=== PATIENT | male | born 1985 | race Caucasian/White ===

== ENCOUNTER 2021-11-12 12:36 | Observation (INO) | payer BC, SELFPAY ==
--- NOTE | ~2021-11-12 | US_ITS ---
US venous doppler [facility] DATE: 11/12/2021 14:14 INDICATION: Left flank pain and swelling. Left hip surgery 5 days ago. TECHNIQUE: Real-time and color flow imaging and Doppler analysis of the veins of the left lower extre mity COMPARISON: None FINDINGS: The left greater saphenous vein is patent. There is spontaneous and phasic flow and normal augmentation and color flow signal and normal compression of the deep veins of the left lower extremi ty. IMPRESSION: Negative examination; no evidence of deep venous thrombosis of left lower extremity Reviewed, dictated and finalized at [facility]. Reviewed, dictated and finalized at [facility].
--- NOTE | ~2021-11-12 | CT_ITS ---
CT guided aspiration DATE: 11/12/2021 16:54 INDICATION: CT-guided percutaneous aspiration of reported left hip area fluid collection TECHNIQUE: The purpose of the procedure, technique and potential complications were discussed discuss ed with the patient. Patient verbalized understanding and gave consent. Biliary CT scanning was performed, revealing fluid collection within the superficial subcutaneous gabi pose tissue over the anterolateral aspect of the left hip.. The area was localized with the use of a graded placed over the left hip. The skin was repaired with sterile Betadine solution. Sterile drape was applied. 1% lidocaine local anesthetic was administered to the skin and underlying subcutaneous t issues. An 18-gauge needle was introduced into the fluid collection using CT guidance. Approximately 2.5 cc serosanguineous fluid was obtained. Dr. Meraz was present and assisted with handling of the fluid specimen for laboratory culture and se nsitivity testing IMPRESSION: CT-guided percutaneous aspiration of approximately 2.5 CC serosanguineous fluid from the superficial subcutaneous adipose tissues of the anterolateral left hip. Reviewed, dictated and finalized at [facility]. Reviewed, dictated and finalized at [facility]. IMPRESSION: CT-guided percutaneous aspiration of approximately 2.5 CC serosangu ineous fluid from the superficial subcutaneous adipose tissues of the anterolat eral left hip.
--- NOTE | ~2021-11-12 | XR_ITS ---
XR hip LT 2V w AP pelvis DATE: 11/12/2021 13:18 INDICATION: Postoperative pain of left hip TECHNIQUE: AP pelvis. AP and lateral views of left hip. COMPARISON: None FINDINGS: Normal alignment at the pubic symphysis and sacroiliac joints. No pelvic fracture or bone d estruction. Status post left total hip arthroplasty. No fracture or dislocation or bone destruction of the left h ip. There is nonspecific patchy increased density overlying the right femoral head similar avascular necr osis is not excluded. IMPRESSION: Status post left total hip arthroplasty No pelvic or left hip fracture or dislocation Reviewed, dictated and finalized at [facility].
--- NOTE | ~2021-11-12 | XR_ITS ---
XR fl guided needle placement DATE: 11/12/2021 16:44 INDICATION: Left hip pain, tenderness 5 days post operative from left total hip arthroplasty TECHNIQUE: The purpose of the procedure, technique and potential complications were discussed with th e patient. The patient verbalized understanding and gave consent. The skin over the anterolateral aspect of the proximal thigh was prepared with sterile Betadine. Ster ile drape was applied. 1% lidocaine local anesthetic was administered to the skin and underlying subc utaneous tissues. A 20-gauge spinal needle was introduced into the left hip joint at 2 different areas, each yielding n o fluid. IMPRESSION: No intra-articular left hip fluid was detected upon fluoroscopically guided left hip aspi ration Reviewed, dictated and finalized at [facility]. Reviewed, dictated and finalized at [facility]. IMPRESSION: No intra-articular left hip fluid was detected upon fluoroscopicall y guided left hip aspiration
[2021-11-12 12:30] VITALS: BP 118/60; PULSE 117; RESP 16; TEMP 37.7; O2SAT 98
--- NOTE | 2021-11-12 13:02 | ED.EXTPRO ---
HPI - Extremity Problem General Chief complaint: Extremity Problem,Nontraumatic Stated complaint: hip pain History of Present Illness HPI Narrative: Patient is a 36-year-old male who presents ER with concerns for possible left hip infection. Patient is status post left hip arthroplasty 5 days ago. Performed by Dr. De Santiago at [facility]. Patient has had increased pain since the procedure. Patient went to [facility] today and after consultation with his orthopedic surgeon it was recommended he be transferred to the ER for further evaluation and possible washout of the hip. Patient was found to have elevated temperature with elevated ESR/CRP. He was given vancomycin as well as cefepime while in the ER at outside hospital. They were attempting to treat his pain with morphine. Patient reports he is able to bear weight on his leg but it is extremely painful. No new numbness or tingling. No redness or drainage from the operative area. He is exquisitely tender to light touch from the hip down to the knee. Will not allow range of motion to be performed due to this discomfort. Patient reports he has been having subjective fevers and shaking chills in addition to his pain at home. Patient has history of avascular necrosis of the hips and has had them replaced. Related Data Home Medications Medication Instructions Recorded Confirmed apixaban 2.5 mg tablet (Eliquis) 2.5 mg PO DAILY 11/12/21 11/12/21 atorvastatin 40 mg tablet (Lipitor) 40 mg PO DAILY 11/12/21 11/12/21 celecoxib 200 mg capsule (Celebrex) 200 mg PO DAILY 11/12/21 11/12/21 cephalexin 500 mg capsule 500 mg PO BID 11/12/21 11/12/21 hydrocodone 7.5 mg-acetaminophen 1 tablet PO Q3H PRN Pain 11/12/21 11/12/21 325 mg tablet Allergies Allergy/AdvReac Type Severity Reaction Status Date / Time No Known Allergies Allergy Verified 11/12/21 13:02 Review of Systems Review of Systems: All systems reviewed & are unremarkable except as noted in HPI and below Constitutional: Constitutional: Reports chills, Reports fatigue and Reports fever(s) ENT: Denies nasal congestion and Denies sore throat Cardiovascular: Cardiovascular: Denies chest pain, Denies rapid heart rate and Denies radiating jaw, neck or arm pain Respiratory: Respiratory: Denies cough and Denies dyspnea Gastrointestinal: Gastrointestinal: Denies abdominal pain, Denies nausea and Denies vomiting Musculoskeletal: Musculoskeletal: Reports arthralgias, Reports joint swelling and Denies muscle cramps Neurologic: Denies numbness and Denies weakness PMFSH Past Medical History Medical History (Updated 11/12/21 @ 20:07 by Taco Quinn MD) Avascular necrosis of hip Surgical History Surgical History History of hip replacement Family History Family History (Updated 11/12/21 @ 19:31 by Miya Laws RN) Other Unknown family medical history Social History Social History (Updated 11/12/21 @ 17:37 by Eli Hillman PA-C) Social History: Surrogate medical decision maker: Code status: Full code. Smoking status: Former smoker Alcohol intake: current Drinks per week: 1 Substance use: never Spiritual care concerns: No Exam Narrative: GENERAL: Uncomfortable and frustrated-appearing, well-nourished, and in no acute distress. HEAD: Normocephalic, atraumatic. EYES: PERRL and EOMI. ENT: Mucous membranes moist. CHEST: Clear to auscultation. No respiratory distress. HEART: Regular rate and rhythm. Normal peripheral pulses. ABDOMEN: Soft, nontender, nondistended. EXTREMITIES: Patient extremely tender palpation of the left hip and thigh down to the knee. No redness. Negligible swelling compared to the right side. Incision appears normal and well-healing without drainage or cellulitis. SKIN: Warm, dry, no rash. NEURO: Alert and oriented x3. PSYCH: Normal mood and affect. Course Course Emergency Course: [place]
[2021-11-12] MEDS: HYDROmorphone HCL INJ (*CRX) 1 MG/ML SYR IV PUSH ×3 (13:03→17:27)
[2021-11-12 13:39] LABS: Basophils Absolute Auto 0.1 K/mm3 (0.0-0.1); Basophils Percent Auto 0.6 % (0.2-1.2); Eosinophils Absolute Auto 0.1 K/mm3 (0-0.3); Eosinophils Percent Auto 1.3 % (0-4.4); Hematocrit 36.4 % (42.0-52.0); Hemoglobin 11.9 g/dL (14.0-18.0); Lymphocytes Absolute Auto 2.04 K/mm3 (0.9-3.2); Lymphocytes Percent Auto 20.5 % (18.3-44.2); Mean Corpuscular HGB Conc 32.7 g/dl (32-36); Mean Corpuscular Hemoglobin 33.8 pg (26-34); Mean Corpuscular Volume 103.4 fl (80-100); Mean Platelet Volume 10.1 fl (7.4-10.4); Neutrophils Absolute Auto 6.5 K/mm3 (1.3-6.7); Neutrophils Percent Auto 65.6 % (45.5-73.1); Platelet Count Result 235 k/mm3 (150-375); Red Blood Count 3.52 M/mm3 (4.6-6.20)
--- NOTE | 2021-11-12 13:58 | PC.NURSE ---
Patient to ultrasound at this time.
[2021-11-12 15:12] LABS: Alanine Aminotransferase 23 U/L (6-50); Albumin Level 3.9 g/dL (3.5-5.1); Alkaline Phosphatase 72 U/L (38-126); Anion Gap 8 mmol/L (8-16); Aspartate Amino Transferase 27 U/L (17-59); Bilirubin,Total 0.6 mg/dL (0.2-1.3); Blood Urea Nitrogen 11 mg/dL (9-20); Calcium 9.2 mg/dL (8.4-10.2); Carbon Dioxide 22 mmol/L (22-30); Chloride 102 mmol/L (98-107); Estimated CRCL calculation 164 ml/min; Estimated Glomerular Filt Rate > 60; Glucose 97 mg/dL (65-110); Potassium 4.5 mmol/L (3.4-5.0); Sodium 132 mmol/L (137-145)
[2021-11-12 15:16] LABS: Prothrombin Time 12.8 Seconds (11.1-14.7)
[2021-11-12 16:44] LABS: CRP 7.9 mg/dL (<1.0)
[2021-11-12 17:19] LABS: Basophils Absolute Auto 0.1 K/mm3 (0.0-0.1); Basophils Percent Auto 0.8 % (0.2-1.2); Eosinophils Absolute Auto 0.1 K/mm3 (0-0.3); Eosinophils Percent Auto 1.2 % (0-4.4); Hematocrit 36.8 % (42.0-52.0); Immature Granulocyte Absolute 0.19 K/mm3 (0.00-0.031); Lymphocytes Percent Auto 22.6 % (18.3-44.2); Mean Corpuscular HGB Conc 32.6 g/dl (32-36); Mean Corpuscular Hemoglobin 33.3 pg (26-34); Mean Corpuscular Volume 102.2 fl (80-100); Mean Platelet Volume 10.4 fl (7.4-10.4); Monocytes Absolute Auto 0.9 K/mm3 (0.1-0.6); Monocytes Percent Auto 9.4 % (2.6-8.5); Neutrophils Absolute Auto 6.2 K/mm3 (1.3-6.7); Platelet Count Result 251 k/mm3 (150-375); Red Cell Distribution Width 13.9 % (11.5-14.5); White Blood Count 9.7 K/mm3 (4.5-10.0)
--- NOTE | 2021-11-12 17:30 | PM.IMHP ---
H&P: HPI History of Present Illness Date/Time: 11/12/21 17:30 Chief Complaint: Left hip pain. Narrative: This is a 36-year-old male who is postoperative day 5 status post left hip arthroplasty for avascular necrosis who presented to the emergency department at [facility] yesterday for evaluation of increasing left hip pain. CT scan at that time showed a seroma under the incision between the subcutaneous fat and fascia and there was a single small foci of gas at the anterior portion of the wound. There were concerns for possible infection given an elevated CRP and due to lack of necessary services at [facility] on the weekends (IR, ultrasound) he was transferred to [facility] ED to be seen by Dr. Abdelrahman De Santiago who performed his surgery. At the time my evaluation, the patient has just returned from the Interventional Radiology suite. He continues to report a 10/10 pain in the left upper anterior thigh, radiating somewhat into the left groin. He has had minimal relief with Percocet at home and IV dilaudid given earlier. With further questioning he admits that his pain has been poorly controlled since the surgery and he has not been getting up and about much due to the pain. Additionally he has noticed some pretty significant swelling in the upper thigh though that seems to have gone down somewhat. He has not noticed any redness or warmth around the area. He has not had a fever to his knowledge. Review of Systems Review of Systems: Twelve systems were reviewed. No fever, chills, or sweats. Appetite has been okay. No nausea or vomiting. No chest pain or pleuritic pain. No shortness of breath. No history of venous thromboembolism. Except as documented, all other systems were reviewed and are negative. [facility] Past Medical History Medical History (Updated 11/12/21 @ 20:56 by Eli Hillman PA-C) Avascular necrosis of hip Diverticulitis Gastroesophageal reflux disease Hyperlipidemia Surgical History Surgical History (Updated 11/12/21 @ 20:56 by Eli Hillman PA-C) History of right hip replacement Family History Family History Other Unknown family medical history Social History Social History (Updated 11/12/21 @ 20:57 by Eli Hillman PA-C) Social History: Surrogate medical decision maker: Lily Goodman, mother. Code status: Full code. Full code. Smoking status: Former smoker Alcohol intake: current Drinks per week: 1 Substance use: never Spiritual care concerns: No Meds Home Medications and Allergies Home Medications Medication Instructions Recorded Confirmed Type apixaban 2.5 mg tablet (Eliquis) 2.5 mg PO DAILY 11/12/21 11/12/21 History atorvastatin 40 mg tablet (Lipitor) 40 mg PO DAILY 11/12/21 11/12/21 History celecoxib 200 mg capsule (Celebrex) 200 mg PO DAILY 11/12/21 11/12/21 History cephalexin 500 mg capsule 500 mg PO BID 11/12/21 11/12/21 History hydrocodone 7.5 mg-acetaminophen 1 tablet PO Q3H PRN Pain 11/12/21 11/12/21 History 325 mg tablet Allergies Allergy/AdvReac Type Severity Reaction Status Date / Time No Known Allergies Allergy Verified 11/12/21 13:02 Vital Signs Vital Signs - 24 hr 11/12/21 12:30 Temperature 99.8 F H Pulse Rate 117 H Respiratory Rate 16 Blood Pressure 118/60 Pulse Oximetry 98 Oxygen Delivery Room Air Exam Narrative: General: Well-developed male sitting up in bed. He appears to be in a moderate amount of pain. Weight: 116.3 kg. BMI: 32.9. HEENT: PERRL, EOMI. Conjunctivae anicteric. Tacky mucous membranes. Neck: Supple. Respiratory: Lungs are clear to auscultation bilaterally. Cardiovascular: Tachycardic with normal S1-S2. Gastrointestinal: Abdomen is soft, nontender, and nondistended with positive bowel sounds. Skin: Warm and dry. No rash or lesions on limited exam. Extremities: No cyanosis, clubbing, or edema. Radial and pedal pulses intact.
--- NOTE | 2021-11-12 17:41 | PM.IMHP ---
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 Meds Home Medications and Allergies Home Medications Medication Instructions Recorded Confirmed Type apixaban 2.5 mg tablet (Eliquis) 2.5 mg PO DAILY 11/12/21 11/12/21 History atorvastatin 40 mg tablet (Lipitor) 40 mg PO DAILY 11/12/21 11/12/21 History celecoxib 200 mg capsule (Celebrex) 200 mg PO DAILY 11/12/21 11/12/21 History cephalexin 500 mg capsule 500 mg PO BID 11/12/21 11/12/21 History cholecalciferol (vitamin D3) 1,250 1,250 mcg PO WEEKLY 11/12/21 11/12/21 History mcg (50,000 unit) capsule hydrocodone 7.5 mg-acetaminophen 1 tablet PO Q3H PRN Pain 11/12/21 11/12/21 History 325 mg tablet losartan 25 mg tablet 25 mg PO DAILY 11/12/21 11/12/21 History Allergies Allergy/AdvReac Type Severity Reaction Status Date / Time No Known Allergies Allergy Verified 11/12/21 13:02 Vital Signs Vital Signs - 24 hr 11/12/21 12:30 Temperature 37.7 C H Pulse Rate 117 H Respiratory Rate 16 Blood Pressure 118/60 Pulse Oximetry 98 Oxygen Delivery Room Air H&P: Results Labs Labs: Short CBC 11/12/21 11/12/21 Range/Units 13:30 17:06 WBC 10.0 9.7 (4.5-10.0) K/mm3 Hgb 11.9 L 12.0 L (14.0-18.0) g/dL Hct 36.4 L 36.8 L (42.0-52.0) % Plt Count 235 251 (150-375) k/mm3 BMP 11/12/21 14:30 Sodium 132 L Potassium 4.5 Chloride 102 Carbon Dioxide 22 BUN 11 Creatinine 0.70 Glucose 97 Calcium 9.2 Liver Function 11/12/21 Range/Units 14:30 Total Bilirubin 0.6 (0.2-1.3) mg/dL AST 27 (17-59) U/L ALT 23 (6-50) U/L Alkaline Phosphatase 72 (38-126) U/L Albumin 3.9 (3.5-5.1) g/dL Assessment and Plan Assessment and plan (1) Postoperative pain: Code(s): G89.18 - Other acute postprocedural pain Status: Acute Plan PATIENT IS A 36-YEAR-OLD GENTLEMAN who underwent left total hip arthroplasty 5 days ago at [facility] on 11/07/2021 for 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 He Came to the emergency room in the middle the night last night when his left hip area became swollen. The emergency room physician felt it was likely infected. Because [facility] does not have weekend surfaces for Interventional Radiology to be able to aspirate the hip and they do not have we can surfaces for venous duplex ultrasound and they did not have operating room surfaces this weekend, he was transferred to [facility]. His laboratory studies a [facility] showed a hemoglobin of 7.9, C-reactive protein of 10 normal less than 0.5. Normal white count. This temperature was 99? so that was nonspecific. His wound was noted to be normal in appearance except for the diffuse swelling and mild erythema of the anterolateral hip and thigh where he had the swelling. He was evaluated at the emergency room here at [facility]. Labs repeated and inexplicably, his hemoglobin was 11.9. I repeated the CBC again and at 5:00 p.m. his hemoglobin was 12.0 so it would appear that the 7.9 hemoglobin was an error. His hemoglobin of 12 represents a mild acute blood loss anemia resulting from the surgery. His hemoglobin was normal before the surgery. C-reactive protein here was 7.9, normal being 1 or less so this is less than 10 times normal and in the immediate postoperative period up to 30 days,hip and kne
--- NOTE | 2021-11-12 17:48 | PC.NURSE ---
Patient medications verified with patient's pharmacy. [facility] in [place], [place].
[2021-11-12 17:50] VITALS: PULSE 125; RESP 18; O2SAT 96
[2021-11-12] MEDS: oxyCODONE/ACETAMINOPHEN (*CRX) 5-325 MG TABLET 2 TABLET PO (18:12)
--- NOTE | 2021-11-12 18:43 | PC.NURSE ---
Patient care report to KACIE Walls. All questions answered at this time.
[2021-11-12 18:52] LABS: Erythrocyte Sedimentation Rate 70 mm/hr (0-20)
--- NOTE | 2021-11-12 19:10 | ADMGEN ---
This patient, Robert Minaya, was admitted to Medical Room 251-01. Patient/family oriented to hospital policies and general routines including ID bracelet, bed and alarms, visiting hours, pain management, procedures, bathroom and other care routines, personal items, smoking policy, room service/diet, and visiting hours. Information on how to activate the Rapid Response Team has been discussed. Patient/Family are encouraged to report perceived risks to care and to ask questions if they do not understand what they are told or what they should do.
[2021-11-12 19:30] VITALS: BMI 32.9
[2021-11-12 19:32] VITALS: BP 133/74; PULSE 109; RESP 20; TEMP 37.2; O2SAT 97
[2021-11-12] MEDS: HYDROcodone/acetaminophen (*CRX) 5-325 MG TABLET 1 TAB PO (20:17)
[2021-11-12] MEDS: cefTRIAXone 2 GM in SODIUM CHLORIDE 0.9% IV 100 ML 200 ML IVPB (20:47)
[2021-11-12 21:15] VITALS: BP 105/51; PULSE 97; RESP 16; TEMP 36.6; O2SAT 95
[2021-11-12] MEDS: oxyCODONE HCL (*CRX) 10 MG TAB SR 12HR PO (21:19)
[2021-11-12] MEDS: APIXABAN 2.5 MG TABLET PO (21:19)
[2021-11-12] MEDS: HYDROmorphone HCL INJ (*CRX) 1 MG/ML SYR 0.5 MG IV PUSH (21:28)
[2021-11-13] MEDS: HYDROmorphone HCL INJ (*CRX) 1 MG/ML SYR 0.5 MG IV PUSH ×2 (01:29→05:31)
[2021-11-13 03:46] VITALS: BP 143/65; PULSE 89; RESP 12; TEMP 36.4; O2SAT 94
[2021-11-13 05:45] LABS: Basophils Absolute Auto 0.1 K/mm3 (0.0-0.1); Basophils Percent Auto 0.9 % (0.2-1.2); Eosinophils Absolute Auto 0.2 K/mm3 (0-0.3); Eosinophils Percent Auto 2.6 % (0-4.4); Hematocrit 35.1 % (42.0-52.0); Immature Granulocyte Absolute 0.22 K/mm3 (0.00-0.031); Immature Granulocyte Percent A 3.3 % (0-0.5); Lymphocytes Absolute Auto 2.09 K/mm3 (0.9-3.2); Lymphocytes Percent Auto 31.5 % (18.3-44.2); Mean Corpuscular HGB Conc 31.3 g/dl (32-36); Mean Corpuscular Hemoglobin 33.1 pg (26-34); Mean Corpuscular Volume 105.7 fl (80-100); Mean Platelet Volume 9.9 fl (7.4-10.4); Monocytes Absolute Auto 0.9 K/mm3 (0.1-0.6); Monocytes Percent Auto 13.1 % (2.6-8.5); Neutrophils Absolute Auto 3.2 K/mm3 (1.3-6.7); Neutrophils Percent Auto 48.6 % (45.5-73.1); Platelet Count Result 221 k/mm3 (150-375); Red Blood Count 3.32 M/mm3 (4.6-6.20); Red Cell Distribution Width 13.6 % (11.5-14.5); White Blood Count 6.6 K/mm3 (4.5-10.0)
[2021-11-13 05:56] LABS: Anion Gap 6 mmol/L (8-16); Blood Urea Nitrogen 15 mg/dL (9-20); Calcium 9.1 mg/dL (8.4-10.2); Carbon Dioxide 30 mmol/L (22-30); Chloride 99 mmol/L (98-107); Estimated CRCL calculation 134 ml/min; Estimated Glomerular Filt Rate > 60; Glucose 120 mg/dL (65-110); Magnesium 2.2 mg/dL (1.6-2.3); Potassium 4.4 mmol/L (3.4-5.0); Sodium 135 mmol/L (137-145)
[2021-11-13 06:07] LABS: Iron 46 ug/dL (49-181)
[2021-11-13 06:16] LABS: Percent Iron Saturation 17 % (20-50)
[2021-11-13 07:01] LABS: Folic Acid 5.8 ng/mL (2.76->20)
--- NOTE | 2021-11-13 07:39 | PM.PNORT ---
Progress Note: A&P Additional Plan In explicitly, my complete admission transfer orders are not in effect this morning. I have spoken to pharmacy and will load his vancomycin and started. That is the most important antibiotic for him since he did test positive for MRSA before surgery. I do not want him to be on Eliquis in case his cultures grow something and we need to stop his anticoagulation as Eliquis takes 48 hours to reverse and instead I want to use Lovenox which takes 24 hours to reverse. I have made these corrections. Subjective Subjective Date/Time Seen: 11/13/21 07:39 Objective Data Vital Signs Vital Signs: Vital Signs - 24 hr 11/12/21 12:30 11/12/21 17:50 11/12/21 19:32 Temperature 37.7 C H 37.2 C Pulse Rate 117 H 125 H 109 H Respiratory Rate 16 18 20 Blood Pressure 118/60 133/74 Pulse Oximetry 98 96 97 Oxygen Delivery Room Air 11/12/21 20:00 11/12/21 21:15 11/13/21 03:46 Temperature 36.6 C 36.4 C L Pulse Rate 97 89 Respiratory Rate 16 12 Blood Pressure 105/51 L 143/65 H Pulse Oximetry 95 94 Oxygen Delivery Room Air Intake/Output Intake/Output: Intake & Output 11/10/21 11/11/21 11/12/21 11/13/21 23:59 23:59 23:59 23:59 Intake Total 100 772 Balance 100 772 Meds/Results Medications: Active Medications Generic Name Dose Route Start Last Admin Trade Name Freq PRN Reason Stop Dose Admin Acetaminophen 650 mg 11/12/21 16:44 Acetaminophen 325 Mg Tablet PO Q4H PRN Mild Pain (1-3) or Fever Acetaminophen 1,000 mg 11/13/21 07:35 Acetaminophen 500 Mg Tablet PO Q6H OH Atorvastatin Calcium 40 mg 11/13/21 09:00 Atorvastatin 40 Mg Tablet PO DAILY OH Celecoxib 200 mg 11/13/21 09:00 Celecoxib 200 Mg Capsule PO DAILY OH Enoxaparin Sodium 30 mg 11/13/21 09:00 Enoxaparin 30 Mg/0.3 Ml Syringe SUB-Q Q12HR OH Ceftriaxone Sodium 2 gm/ 100 mls @ 200 mls/hr 11/12/21 18:05 11/12/21 21:17 Sodium Chloride IVPB Infused DAILY@1700 OH Infusion Vancomycin HCl 1,750 mg in 500 mls @ 250 mls/hr 11/13/21 08:00 Vancomycin 1,750 Mg/D5w 500 Ml IVPB Q12H [facility] Morphine Sulfate 2 mg 11/13/21 07:31 Morphine Sulfate (*Crx) 2 Mg/Ml Inj IV PUSH Q1H PRN Pain Rated 7-10 Naloxone HCl 0.1 mg 11/13/21 07:31 Naloxone Hcl 0.4 Mg/Ml Vial IV PUSH Q2M PRN Opiate Reversal Oxycodone HCl 5 mg 11/13/21 07:35 Oxycodone Hcl (*Crx) 5 Mg Tab Ir PO Q4H OH Oxycodone HCl 5 mg 11/13/21 07:31 Oxycodone Hcl (*Crx) 5 Mg Tab Ir PO Q4H PRN Pain Rated 4-10 Polyethylene Glycol 17 gm 11/13/21 09:00 Polyethylene Glycol 3350 17 Gm Powd.Pack PO QAM [facility] Senna/Docusate Sodium 2 tab 11/13/21 09:00 Senna/Docusate Sodium Tablet PO BID OH Senna/Docusate Sodium 2 tab 11/13/21 09:00 Senna/Docusate Sodium Tablet PO BID [facility] Radiology Results: ITS Impressions Hip/Pelvis X-Ray 11/12/21 13:27 IMPRESSION: Status post left total hip arthroplasty No pelvic or left hip fracture or dislocation Venous Doppler Study 11/12/21 14:29 IMPRESSION: Negative examination; no evidence of deep venous thrombosis of left lower extremity Labs Labs: Laboratory Results - last 24 hr 11/12/21 11/12/21 11/12/21 13:28 13:30 13:30 WBC 10.0 RBC 3.52 L Hgb 11.9 L Hct 36.4 L MCV 103.4 H MCH 33.8 MCHC 32.7 RDW 14.0 Plt Count 235 MPV 10.1 Immature Gran % (Auto) 2.0 H Neut % (Auto) 65.6 Lymph % (Auto) 20.5 Dodge % (Auto) 10.0 H Eos % (Auto) 1.3 Baso % (Auto) 0.6 Lymph # (Auto) 2.04 Dodge # (Auto) 1.0 H Eos # (Auto) 0.1 Baso # (Auto) 0.1 Abs Immat Gran (auto) 0.20 H Absolute Neuts (auto) 6.5 Absolute Nucleated RBC 0.0 Nucleated RBC % 0.0 ESR PT INR APTT Sodium Potassium Chloride Carbon Dioxide Anion Gap BUN Creatinine Estim Cr
[2021-11-13] MEDS: ACETAMINOPHEN 500 MG TABLET 1000 MG PO (08:55)
[2021-11-13] MEDS: oxyCODONE HCL (*CRX) 5 MG TAB IR PO (08:55)
[2021-11-13] MEDS: SENNA/DOCUSATE SODIUM TABLET 2 TAB PO ×2 (08:55→16:31)
[2021-11-13] MEDS: ENOXAPARIN 30 MG/0.3 ML SYRINGE SUB-Q ×2 (08:56→20:15)
[2021-11-13] MEDS: CELECOXIB 200 MG CAPSULE PO (08:56)
[2021-11-13] MEDS: ATORVASTATIN 40 MG TABLET PO (08:56)
[2021-11-13] MEDS: polyethylene glycoL 3350 17 GM POWD.PACK PO (08:56)
[2021-11-13] MEDS: HYDROcodone/acetaminophen (*CRX) 10-325 MG TABLET 1 TAB PO ×4 (11:26→23:40)
[2021-11-13] MEDS: CYCLOBENZAPRINE HCL 10 MG TABLET PO ×2 (11:58→20:11)
[2021-11-13] MEDS: ACETAMINOPHEN 325 MG TABLET PO ×3 (15:11→23:40)
--- NOTE | 2021-11-13 15:41 | PM.IMPN ---
Progress Note: A&P Assessment and Plan (1) Postoperative pain: Code(s): G89.18 - Other acute postprocedural pain Status: Acute Assessment and Plan: Patient reports increasing pain since his left total hip arthroplasty on 11/07/2021 CT at outside facility completed which demonstrated seroma between the subcutaneous fat and fascia Concerns are for possible infection with elevated inflammatory markers. Underwent CT-guided aspiration of serosanguineous fluid from seroma Stat Gram stain negative. Wound cultures pending Appreciate orthopedic surgery consultation Continue IV vancomycin and ceftriaxone while awaiting culture results Analgesics as needed, managed per Orthopedic surgery (2) Postoperative seroma: Status: Acute Assessment and Plan: Seroma versus possible infection. Plan as above (3) Macrocytic anemia: Code(s): D53.9 - Nutritional anemia, unspecified Status: Acute Assessment and Plan: Mild anemia Vitamin B12 is deficient. Will begin supplementation Iron stores are decreased. Patient will need oral iron supplementation. Will defer at this time in the event of acute infection No evidence of bleeding Continue to monitor H&H (4) Hyperlipidemia: Code(s): E78.5 - Hyperlipidemia, unspecified Status: Acute Assessment and Plan: LFTs are within normal limits. Continue statin (5) Tobacco abuse: Code(s): Z72.0 - Tobacco use Status: Acute Assessment and Plan: Patient reports smoking 2 packs per day Requested nicotine patch, however this is being deferred to allow for wound healing Continue to reinforce smoking cessation Subjective Date/time seen: 11/13/21 15:41 Interval history: Date of service: 11/13/2021 Robert oakes is a 36-year-old male with history of tobacco abuse, diverticulitis, hyperlipidemia, avascular necrosis of the bilateral hips s/p left total hip arthroplasty on 11/07/2021 who is seen in follow-up for postoperative left hip pain and swelling. He feels poorly today. He describes 10/10 pain in his left hip that is sharp and tearing. He describes a constant pulsating discomfort that occasionally shoots down to the knee and the calf. With pain medication, he had a decrease in his pain to 8/10 briefly but now he is back to severe, test had 10 pain. He does feel that his swelling has gone down. He states the area around his incision is very firm and warm to touch. He denies fever or chills. Does endorse sweats. No nausea or vomiting. Denies shortness breath, cough, chest pain. He describes constant, intermittent dizziness for the past fiber 6 weeks since falling and hitting his head. He has been evaluated for this issue by his medical provider. He denies dysuria. He has no additional concerns at this time. Review of Systems Review of Systems: All systems reviewed & are unremarkable except as noted in HPI and below Exam Narrative: General: Well-nourished, well-appearing 36-year-old male, sitting up in bed, comfortable, NARD Neuro: awake, alert and oriented x4, speech clear, no focal neuro deficits noted HEENMT: normocephalic, atraumatic, EOMI, sclerae anicteric Respiratory: clear to auscultation bilaterally, nonlabored breathing Cardio: regular rate, regular rhythm with S1-S2 Abdomen: nondistended, normoactive bowel sounds, soft, nontender to palpation Extremities: Left hip is edematous with firm area of erythema surrounding incision, bilateral lower extremities with no edema, erythema, or tenderness to palpation, DP pulses 2+ bilaterally Skin: no rashes or lesions, warm and dry Psych: Slightly irritable, judgment and insight intact Objective Data Vital Signs Vital Signs: Vital Signs - 24 hr 11/12/21 17:50 11/12/21 19:32 11/12/21 20:00 Temperature 99.0 F Pulse Rate 125 H 109 H Respiratory Rate 18 20 Blood Pressure 133/74 Pulse Oximetry 96 97 Oxygen Delivery
[2021-11-13] MEDS: cefTRIAXone 2 GM in SODIUM CHLORIDE 0.9% IV 100 ML 200 ML IVPB (16:31)
[2021-11-13 21:09] VITALS: BP 132/79; PULSE 91; RESP 16; TEMP 36.9; O2SAT 96
[2021-11-13 21:11] VITALS: BP 132/79; PULSE 91; RESP 16; TEMP 36.9; O2SAT 96
--- NOTE | 2021-11-13 21:40 | PC.NURSE ---
After new IV inserted noted that patients bed was up higher, attempted to lower bed and patient yelled stating leaving it alone don't F... mess with it. Explained to patient that I was attempting to lower it for his safety and he stated no that he wanted it up and to leave it alone and to leave his room.
[2021-11-13] MEDS: MORPHINE SULFATE (*CRX) 2 MG/ML INJ IV PUSH (22:41)
[2021-11-14] MEDS: ACETAMINOPHEN 325 MG TABLET PO ×4 (03:49→15:00)
[2021-11-14] MEDS: HYDROcodone/acetaminophen (*CRX) 10-325 MG TABLET 1 TAB PO ×4 (03:49→15:00)
[2021-11-14 03:56] VITALS: BP 133/76; PULSE 82; RESP 12; TEMP 36.6; O2SAT 99
--- NOTE | 2021-11-14 04:03 | PC.NURSE ---
Patient is aware of hip precaution instructions, specific physician to nurse communication orders. Despite repeated education, he is mostly non-compliant. Patient has been rude to staff throughout this shift.
[2021-11-14 05:44] LABS: Hematocrit 36.5 % (42.0-52.0); Hemoglobin 11.7 g/dL (14.0-18.0); Mean Corpuscular HGB Conc 32.1 g/dl (32-36); Mean Corpuscular Hemoglobin 33.9 pg (26-34); Mean Corpuscular Volume 105.8 fl (80-100); Mean Platelet Volume 10.2 fl (7.4-10.4); Platelet Count Result 233 k/mm3 (150-375); Red Blood Count 3.45 M/mm3 (4.6-6.20); Red Cell Distribution Width 13.5 % (11.5-14.5); White Blood Count 6.7 K/mm3 (4.5-10.0)
[2021-11-14] MEDS: MORPHINE SULFATE (*CRX) 2 MG/ML INJ IV PUSH (05:47)
[2021-11-14 06:02] LABS: Anion Gap 6 mmol/L (8-16); Blood Urea Nitrogen 14 mg/dL (9-20); Calcium 9.2 mg/dL (8.4-10.2); Carbon Dioxide 30 mmol/L (22-30); Chloride 101 mmol/L (98-107); Estimated CRCL calculation 149 ml/min; Estimated Glomerular Filt Rate > 60; Glucose 107 mg/dL (65-110); Potassium 4.5 mmol/L (3.4-5.0); Sodium 137 mmol/L (137-145)
--- NOTE | 2021-11-14 06:40 | PM.PNORT ---
Subjective Subjective Date/Time Seen: 11/14/21 06:40 patient is alert. Pain is well controlled. Swelling in the thigh is completely gone. Incision is dry looks very normal. We are waiting for culture results from today. If culture results from today are negative we will plan on sending the patient home later this afternoon on p.o. antibiotics. Patient is up walking overall doing much better. Objective Data Vital Signs Vital Signs: Vital Signs - 24 hr 11/13/21 08:00 11/13/21 21:09 11/13/21 21:11 Temperature 36.9 C 36.9 C Pulse Rate 91 91 Respiratory Rate 16 16 Blood Pressure 132/79 132/79 Pulse Oximetry 96 96 Oxygen Delivery Room Air 11/14/21 03:56 Temperature 36.6 C Pulse Rate 82 Respiratory Rate 12 Blood Pressure 133/76 Pulse Oximetry 99 Oxygen Delivery Intake/Output Intake/Output: Intake & Output 11/11/21 11/12/21 11/13/21 11/14/21 23:59 23:59 23:59 23:59 Intake Total 100 2902 390 Balance 100 2902 390 Meds/Results Medications: Active Medications Generic Name Dose Route Start Last Admin Trade Name Freq PRN Reason Stop Dose Admin Acetaminophen 650 mg 11/12/21 16:44 Acetaminophen 325 Mg Tablet PO Q4H PRN Mild Pain (1-3) or Fever Acetaminophen 325 mg 11/13/21 15:00 11/14/21 03:49 Acetaminophen 325 Mg Tablet PO 325 mg Q4H OH Administration Hydrocodone Bitart/Acetaminophen 1 tab 11/13/21 12:00 11/14/21 03:49 Hydrocodone/Acetaminophen (*Crx) 10-325 Mg Tablet PO 1 tab Q4H OH Administration Atorvastatin Calcium 40 mg 11/13/21 09:00 11/13/21 08:56 Atorvastatin 40 Mg Tablet PO 40 mg DAILY OH Administration Celecoxib 200 mg 11/13/21 09:00 11/13/21 08:56 Celecoxib 200 Mg Capsule PO 200 mg DAILY OH Administration Cyclobenzaprine HCl 10 mg 11/13/21 11:23 11/13/21 20:11 Cyclobenzaprine Hcl 10 Mg Tablet PO 10 mg Q8H PRN Administration Muscle Spasm Diphenhydramine HCl 50 mg 11/13/21 11:23 Diphenhydramine Hcl Cap 25 Mg Capsule PO ONCE PRN Itching Enoxaparin Sodium 30 mg 11/13/21 09:00 11/13/21 20:15 Enoxaparin 30 Mg/0.3 Ml Syringe SUB-Q 30 mg Q12HR OH Administration Ceftriaxone Sodium 2 gm/ 100 mls @ 200 mls/hr 11/12/21 18:05 11/13/21 17:15 Sodium Chloride IVPB Infused DAILY@1700 OH Infusion Vancomycin HCl 1,750 mg in 500 mls @ 250 mls/hr 11/13/21 08:00 11/13/21 23:19 Vancomycin 1,750 Mg/D5w 500 Ml IVPB Infused Q12H OH Infusion Morphine Sulfate 2 mg 11/13/21 07:31 11/14/21 05:47 Morphine Sulfate (*Crx) 2 Mg/Ml Inj IV PUSH 2 mg Q1H PRN Administration Pain Rated 7-10 Naloxone HCl 0.1 mg 11/13/21 07:31 Naloxone Hcl 0.4 Mg/Ml Vial IV PUSH Q2M PRN Opiate Reversal Polyethylene Glycol 17 gm 11/13/21 09:00 11/13/21 08:56 Polyethylene Glycol 3350 17 Gm Powd.Pack PO 17 gm QAM OH Administration Senna/Docusate Sodium 2 tab 11/13/21 09:00 11/13/21 16:31 Senna/Docusate Sodium Tablet PO 2 tab BID OH Administration Radiology Results: ITS Impressions Hip/Pelvis X-Ray 11/12/21 13:27 IMPRESSION: Status post left total hip arthroplasty No pelvic or left hip fracture or dislocation Venous Doppler Study 11/12/21 14:29 IMPRESSION: Negative examination; no evidence of deep venous thrombosis of left lower extremity Guidance Fluoroscopy 11/13/21 08:37 IMPRESSION: No intra-articular left hip fluid was detected upon fluoroscopically guided left hip aspiration Needle Aspiration CT 11/13/21 08:39 IMPRESSION: CT-guided percutaneous aspiration of approximately 2.5 CC serosanguineous fluid from the superficial subcutaneous adipose tissues of the anterolateral left hip. Labs Labs: Laboratory Results - last 24 hr 11/13/21 11/13/21 11/13/21 05:28 05:28 05:28 WBC 6.6 RBC 3.32 L Hgb 11.0 L Hct 35.1 L MCV 105.7 H MCH 33.1 MCHC 31.3 L RDW 13.6 Plt
[2021-11-14] MEDS: ATORVASTATIN 40 MG TABLET PO (08:00)
[2021-11-14] MEDS: CELECOXIB 200 MG CAPSULE PO (08:00)
[2021-11-14] MEDS: SENNA/DOCUSATE SODIUM TABLET 2 TAB PO (08:00)
[2021-11-14] MEDS: ENOXAPARIN 30 MG/0.3 ML SYRINGE SUB-Q (08:01)
[2021-11-14] MEDS: CYCLOBENZAPRINE HCL 10 MG TABLET PO (11:04)
--- NOTE | 2021-11-14 12:11 | PM.IMPN ---
Progress Note: A&P Assessment and Plan (1) Postoperative pain: Code(s): G89.18 - Other acute postprocedural pain Status: Acute Assessment and Plan: Patient reports increasing pain since his left total hip arthroplasty on 11/07/2021 CT at outside facility completed which demonstrated seroma between the subcutaneous fat and fascia Concerns are for possible infection with elevated inflammatory markers. Underwent CT-guided aspiration of serosanguineous fluid from seroma Stat Gram stain negative. Wound cultures pending, but both aerobic and anaerobic are preliminarily negative. Appreciate orthopedic surgery consultation Continue IV vancomycin and ceftriaxone while awaiting culture results Analgesics as needed, managed per Orthopedic surgery (2) Postoperative seroma: Status: Acute Assessment and Plan: Seroma versus possible infection. Plan as above (3) Macrocytic anemia: Code(s): D53.9 - Nutritional anemia, unspecified Status: Acute Assessment and Plan: Mild anemia Vitamin B12 is deficient. Will begin supplementation Iron stores are decreased. Patient will need oral iron supplementation. Will defer at this time in the event of acute infection No evidence of bleeding Continue to monitor H&H (4) Hyperlipidemia: Code(s): E78.5 - Hyperlipidemia, unspecified Status: Acute Assessment and Plan: LFTs are within normal limits. Continue statin (5) Tobacco abuse: Code(s): Z72.0 - Tobacco use Status: Acute Assessment and Plan: Patient reports smoking 2 packs per day Requested nicotine patch, however this is being deferred to allow for wound healing Continue to reinforce smoking cessation Time Spent With Patient Time with patient: 15 - 25 minutes Subjective Date/time seen: 11/14/2115 This pt. was examined at the bedside today in interval assessment. He has continued pain in the left hip at the site of his previous arthroplasty. He has been evaluated by Orthopedics and currently remains on IV Vancomycin and Rocephin, Day #4 for Rocephin and Day #2 for Vancomycin. Final culture results are pending on the aspirate that was removed from the joint. Both aerobic and anaerobic are pending. He has no CP, Dyspnea, N/V/D/Headache, Dizziness or lightheadedness. Review of Systems Review of Systems: All systems reviewed & are unremarkable except as noted in HPI and below Exam Const: General: no acute distress and uncomfortable HENMT: General nose exam: Normal nares present and no epistaxis Mouth: Yes moist mucous membranes Eyes: General: appearance normal, both eyes and all related structures Sclera: sclerae normal Pupils: Equal, round and reactive pupils present EOM: EOMs intact bilaterally Neck: Neck: supple and no JVD Resp: Effort & Inspection: normal respiratory effort Auscultation: clear to auscultation bilaterally Cardio: Rate: regular rate Rhythm: regular rhythm Heart sounds: no gallops, no murmurs and no rubs GI: Inspection: non-distended GI Palp: Yes Soft to palpation, No Tenderness to palpation present (GI) and No Guarding due to palpation present (GI) Auscultation: normal bowel sounds Skin: General skin exam: normal color and no erythema Other: Surgical incision line on the Left lateral leg over the hip that is closely approximated and there is no surrounding erythema, edema or drainage and no bruising present. Neuro: General: gait normal Speech: normal speech Motor exam (neuro): 5/5 motor strength present throughout and Normal motor muscle tone present throughout Sensory Exam: normal sensation Extrem: General: normal to inspection, no edema and no pedal edema Other: Freely and equally MAEW. Psych: Mental Status: mental status grossly normal Other: Pt. is short with his responses and appears bothered. Objective Data Vital Signs Vital Signs: Vital Signs - 24 hr 11/13/21 21:09
[2021-11-14 13:58] VITALS: BP 118/63; PULSE 90; RESP 16; TEMP 36.2; O2SAT 98
--- NOTE | 2021-11-14 15:21 | PM.DS ---
DS: Admitting Diagnosis Discharge Date 11/14 Admitting Diagnosis pain left hip DS: Discharge Diagnosis Discharge Diagnosis Plan 36-year-old male who was admitted following total hip arthroplasty done in [place] 8 days ago. He was admitted due to increased pain in the hip over the weekend. He was admitted to rule out infection. Workup so far has been negative. He has been afebrile throughout his time here. He had a venous duplex ultrasound which is negative. Aspiration of the hip under fluoro show no fluid but there was a small subcutaneous wound seroma which looked benign. Fluid was sent for cultures. G stain was negative and initial cultures after 24 hours were no growth. Patient's pain has been much better since he has been here. When he was admitted he had swelling in the thigh which quickly dissipated once he was off the leg and had the leg elevated. Patient went home and was very active up on the leg which could cause increased pain and swelling in the thigh. At this point we are going to discharge him home on 11/14. 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 We will continue to check cultures on a daily basis until final culture results are done. He is on Bactrim DS at this point he will be taking this b.i.d. for 2 weeks. He was on Keflex prior to this which she will stop. He is on Eliquis again for DVT prophylaxis. He is on Sylvester 10s with an extra Tylenol 325 taken with these every 4 hours for pain control. He is on Celebrex 200 mg once a day for the 1st 10 days. He is also going home with Flexeril which he was taking here at the hospital. Patient was advised he has used a walker until he is seen in the office at his 1st visit. We will be in contact with him about his culture results as well. Certainly if he has any increased pain or drainage he should call the office. His thigh at this point looks very benign. He has minimal swelling in the thigh and his incision has been clean and dry the entire time he is here without any drainage. DS: Summary Hospital Course Hospital Course: Stable Time Spent with Patient Time attestation: Total time spent providing and/or coordinating discharge services: DS: Data Data Completed and Pending Labs on day of discharge: Labs from last 24 hours 11/14/21 11/14/21 05:11 05:11 WBC 6.7 RBC 3.45 L Hgb 11.7 L Hct 36.5 L MCV 105.8 H MCH 33.9 MCHC 32.1 RDW 13.5 Plt Count 233 MPV 10.2 Sodium 137 Potassium 4.5 Chloride 101 Carbon Dioxide 30 Anion Gap 6 L BUN 14 Creatinine 0.80 Estim Creat Clear Calc 149 Estimated GFR > 60 Glucose 107 Calcium 9.2 Preliminary micro results at discharge 11/12/21 16:38 Anaerobic Culture - Preliminary Hip Left Aerobic Culture - Preliminary Discharge Plan Discharge Consulting providers: Abdelrahman De Santiago Discharging Clinician: Alex Agudelo Anticipated Discharge Date/Time: 11/14/21 15:04 Patient Disposition: Home, Self-Care Activity: may shower Diet: as tolerated Wound Care Instructions: change dressing daily Discharge Instructions: ABDELRAHMAN DE SANTIAGO M.D [facility], [address] [address] POST-OPERATIVE DISCHARGE INSTRUCTIONS ANTERIOR TOTAL HIP ARTHROPLASTY 1. Move toes/feet up and down every hour while awake. 2. Be up walking every hour while awake. 3. Use cane in hand opposite of side of hip surgery or walker as comfort allows. Avoid sitting in a chair unless eating, receiving visitors or using the toilet. 4. When resting, lie on back with leg elevated above heart to minimize swelling. Significant swelling could indicate a blood clot and if this occurs, call the office (or go to the ER) to have a venous ultrasound performed. 5. Wound Care: Keep dry sponge on wound for 2 weeks. Use minimal tape. 6. Use walker till seen in office 7. May shower with dressing off. Patient Instruc
== END 2021-11-14 16:46 | disposition home or self-care (01) ==
LOC: ANHED 17:16 → ANH2MED 18:30
PROVIDERS: Physician Assistant; Admitting Provider Family Medicine; Emergency Provider Emergency Medicine; Visit Provider Nurse Practitioner Adult Health
DX: M96.842 Postprocedural seroma of a musculoskeletal structure following a musculoskeletal system procedure (principal); G89.18 Other acute postprocedural pain; M25.552 Pain in left hip; R22.42 Localized swelling, mass and lump, left lower limb; D53.9 Nutritional anemia, unspecified; E78.5 Hyperlipidemia, unspecified; K21.9 Gastro-esophageal reflux disease without esophagitis; Z96.643 Presence of artificial hip joint, bilateral; Y83.8 Other surgical procedures as the cause of abnormal reaction of the patient, or of later complication, without mention of misadventure at the time of the procedure; Z22.322 Carrier or suspected carrier of Methicillin resistant Staphylococcus aureus; Z87.891 Personal history of nicotine dependence
CPT/HCPCS: 10160; 36415; 73502; 77002; 80048; 80053; 82607; 82728; 82746; 83540; 83550; 83735; 85025; 85027; 85610; 85652; 85730; 86140; 86850; 86900; 86901; 87070; 87075; 87205; 89051; 89060; 93971; 96365; 96366; 96367; 96372; 96374; 96375; 96376; 99285; A9270; G0378; G0379; J0696; J1170; J1650; J2270; J3370